=== PATIENT | female | born 1985 | race Caucasian/White ===

== ENCOUNTER 2017-03-19 08:57 | Emergency (ER) | payer MEDICAID ==
[2017-03-19 09:07] VITALS: BP 114/68; PULSE 70; RESP 16; TEMP 97.9; O2SAT 97
[2017-03-19] MEDS ORDERED: IBUPROFEN 200 MG TAB PO ONE (09:09)
--- NOTE | 2017-03-19 09:15 | EDPHY ---
H & P HPI/ROS: CHIEF COMPLAINT: Left ankle pain History by patient HISTORY OF PRESENT ILLNESS: 32 old woman presents complaining of pain in her left ankle and inability to bear weight after slipping on a step at home while moving. She thinks she melissa her foot. She has been unable to bear weight since the injury yesterday morning at 11:00 a.m. she has been using crutches but has not taken anything for pain. She denies any other pain or injury. REVIEW OF SYSTEMS: As in HPI, and all other systems reviewed and are negative Smoking Status: Former smoker Physical Exam: General Appearance: Alert and no distress. Eyes: Pupils equal and round no injection. Musculoskeletal: Neck is supple and nontender. Extremities: Left ankle positive swelling lateral greater than medial. Positive tenderness to posterior lateral malleolus and to anterior medial malleolus, DP pulse 2 + equal to the left, decreased range of motion secondary to pain, positive wiggles toes, distal cap refill less than 3 seconds, distal sensation intact, no proximal fibular tenderness Skin: No rashes or lesions except as described above. Constitutional: Initial Vital Signs Temperature (C) 36.6 C 03/19/17 09:02 Heart Rate 70 03/19/17 09:02 Respiratory Rate 16 03/19/17 09:02 Blood Pressure 114/68 03/19/17 09:02 O2 Sat (%) 97 03/19/17 09:02 Allergies/Adverse Reactions: codeine Allergy (Verified 03/19/17 09:07) Home Medications: Medication Instructions Recorded NK [No Known Home Meds] 03/19/17 MDM/Departure - MDM Imaging Results: Imaging Impressions Ankle X-Ray 03/19/17 09:09 Impression: Minimal displaced avulsion fracture of the lateral talus. Findings discussed with Tita Haines MD 03/19/2017 at 10:32. Medications Given: Discontinued Medications Ibuprofen (Motrin) 400 mg PO EDNOW ONE Stop: 03/19/17 09:10 Last Admin: 03/19/17 09:15 Dose: 400 mg ED Course/Re-evaluation: 31-year-old woman presents with left ankle pain and swelling fails auto ankle rules. Patient was given ibuprofen emerged department for pain. X-ray was obtained which showed no evidence of fracture on my initial read. Patient was placed in a stirrup splint and made weight-bearing as tolerated. We discussed home care and return precautions and follow-up. 10:50 a.m. I received a call from the radiologist with an over read on the x- ray showing a avulsion fracture of the left lateral talus. I called the patient back and spoke with her and informed her of this injury and change in diagnosis. I have requested that she be nonweightbearing and to follow up with Orthopedics as soon as possible. She has been given Dr. Canales is phone number who is on-call today for Orthopedics. She understands that she should be nonweightbearing that she needs to follow up with Ortho. - Depart Disposition: Home, Routine, Self-Care Clinical Impression: Left ankle sprain Qualifiers: Encounter type: initial encounter Involved ligament of ankle: unspecified ligament Qualified Code(s): S93.402A - Sprain of unspecified ligament of left ankle, initial encounter Condition: Good Instructions: Ankle Sprain (ED) Additional Instructions: You were seen by Dr. Tita Haines today. You may put as much weight as you can tolerate on your ankle. Use crutches as needed. Wear the stirrup splint for comfort. Ice your foot for 10-15 minutes every few hours for the next 24 hours try to keep it elevated above the level of the heart. Establish primary care for follow-up. Consider physical therapy if no improvement after 4 weeks. Return for any worsening or new concerns. Referrals: NONE *PRIMARY CARE P,. [Primary Care Provider] - As per Instructions
== END 2017-03-19 09:50 | disposition home or self-care (01) ==
LOC: CED 08:57
DX: S93.402A Sprain of unspecified ligament of left ankle, initial encounter (principal); Z87.891 Personal history of nicotine dependence; W10.8XXA Fall (on) (from) other stairs and steps, initial encounter; Y92.009 Unspecified place in unspecified non-institutional (private) residence as the place of occurrence of the external cause
CPT/HCPCS: 73610-PO; L4350